=== PATIENT | male | born 1990 ===

== ENCOUNTER 2023-06-09 10:39 | Emergency (ER) | payer SELFPAY ==
[2023-06-09] MEDS ORDERED: cefTRIAXone (ROCEPHIN) 500 MG VIAL ONE (11:20)
[2023-06-09] MEDS ORDERED: Lidocaine 1% PF 5 ML VIAL ONE (11:20)
[2023-06-09 15:44] LABS: Chlam.trachomatis by PCR,Urine Not Detected (NotDetected); GC N.gonorrhoeae PCR,UrineVOID DETECTED (NotDetected)
== END 2023-06-09 11:42 | disposition home or self-care (01) ==
LOC: ERS 10:39
DX: Z20.2 Contact with and (suspected) exposure to infections with a predominantly sexual mode of transmission (principal)
CPT/HCPCS: 87491; 87591; 96372; 99283; J0696